=== PATIENT | female | born 1940 | race Caucasian/White ===

== ENCOUNTER 2017-02-14 17:11 | Emergency (ER) | payer MEDICARE, BC ==
[2017-02-14 17:36] VITALS: RESP 20
[2017-02-14] MEDS ORDERED: SODIUM CHLORIDE 0.9% 1000ML 1,000 ML IV ONE (17:37)
[2017-02-14] MEDS ORDERED: HYDROMORPHONE 1 MG/ML SYRINGE IV ONE (17:39)
[2017-02-14] MEDS ORDERED: HYDROMORPHONE 1 MG/ML SYRINGE ONE ×3 (17:41→19:09)
[2017-02-14 17:56] LABS: BASOPHILS % (AUTO) 1 % (0-3); EOSINOPHILS % (AUTO) 4 % (0-9); HEMATOCRIT 40 % (35-47); MEAN CORPUSCULAR HGB CONC 33.5 gm/dl (32.0-36.0); MEAN CORPUSCULAR VOLUME 94 fL (81-99); MONOCYTES % (AUTO) 4.7 % (0-12); NEUTROPHILS % (AUTO) 80.4 % (37-80)
[2017-02-14 18:14] LABS: ALBUMIN 3.1 gm/dl (3.4-5.0); CALCIUM 8.2 mg/dl (8.5-10.1); POTASSIUM 3.8 mMol/L (3.5-5.1)
[2017-02-14] MEDS ORDERED: HYDROMORPHONE HCL 2 MG/ML SOL IV ONE (19:05)
[2017-02-14] MEDS ORDERED: SODIUM CHLORIDE 0.9% 500 ML 500 ML IV ONE (19:25)
[2017-02-14] MEDS ORDERED: APAP/OXYCODONE 325/5 TAB PO PRN (19:26)
[2017-02-14] MEDS ORDERED: APAP/OXYCODONE 325/5 TAB ONE (19:30)
[2017-02-14 20:38] VITALS: TEMP 99.1
[2017-02-14 22:38] VITALS: PULSE 103; O2SAT 92
[2017-02-14 22:39] VITALS: BP 128/83
== END 2017-02-14 22:10 | disposition short-term general hospital (02) | DRG 185 ==
LOC: ED 17:11 → ACUTE CARE 19:59 → UNDOADMOB 19:59 → ED 22:10
DX: S22.21XA Fracture of manubrium, initial encounter for closed fracture (principal); I67.9 Cerebrovascular disease, unspecified; V80.010A Animal-rider injured by fall from or being thrown from horse in noncollision accident, initial encounter; M79.652 Pain in left thigh
CPT/HCPCS: 36415; 70450; 71010; 72125; 72128; 72131; 73552; 80053; 85025; 85610; 93005; 99291; J1170